=== PATIENT | female | born 1980 | race Caucasian/White ===

== ENCOUNTER 2022-09-25 17:37 | Outpatient (CLI) | payer OTHER, SELFPAY ==
--- NOTE | ~2022-09-25 | MM_ITS ---
EXAMINATION: MM screening edith BI w north HISTORY: Screening mammogram TECHNIQUE: Craniocaudal and mediolateral oblique 3-D tomosynthesis images were obtained and synthetic 2-D images were generated. CAD analysis was submitted and interpreted. COMPARISON: No prior mammogram is available for comparison at this institution. BREAST PARENCHYMAL COMPOSITION: There are scattered areas of fibroglandular density. FINDINGS: Subtle asymmetry is suggested in the right subareolar area. Diagnostic right mammogram is r ecommended, with ultrasound if required. Otherwise there is no evidence of suspicious mass, calcification, or architectural distortion to sug gest malignancy in either breast. IMPRESSION: 1. Subtle mammographic asymmetry in right subareolar area 2. Diagnostic right mammogram is recommended, with ultrasound if required BI-RADS Category 0: Incomplete: Needs additional imaging evaluation. Reviewed, dictated and finalized at location A. ULAR TECH
== END 2022-09-25 17:38 | disposition home or self-care (01) ==
PROVIDERS: PCP Internal Medicine; Visit Provider Nurse Practitioner
DX: Z12.31 Encounter for screening mammogram for malignant neoplasm of breast (principal); N64.89 Other specified disorders of breast
CPT/HCPCS: 77063; 77067

== ENCOUNTER 2022-10-12 13:42 | Outpatient (CLI) | payer OTHER, SELFPAY ==
--- NOTE | ~2022-10-12 | MMUS_ITS ---
EXAMINATION: MM diagnostic edith RT w north, US breast RT complete HISTORY: Subtle mammographic asymmetry in the right subareolar area on 09/21/2022 screening mammogram TECHNIQUE: Additional 3-D tomosynthesis images of the right breast were performed and synthetic 2-D i mages were generated. CAD analysis was submitted and interpreted. High resolution complete right sih st ultrasound examination including all 4 quadrants and subareolar area was performed. COMPARISON: 09/21/2022 bilateral screening mammogram FINDINGS: MAMMOGRAPHIC FINDINGS: Possible approximately 6.5 x 11 mm opacity in the lower outer left breast (ML Tomosynthesis image ). No suspicious reproducible mass or architectural distortion, malignant calcification, skin thickening or retraction is detected. ULTRASOUND: No suspicious mass or shadowing, cyst or other significant sonographic abnormalities detected in the right breast. IMPRESSION: 1. No mammographic evidence of malignancy 2. Routine annual mammographic screening is recommended BI-RADS Category 1: Negative Reviewed, dictated and finalized at location A. OYEE COMMUNICATIONS COORDINATOR IMPRESSION: 1. No mammographic evidence of malignancy 2. Routine annual mammographic screening is recommended BI-RADS Category 1: Negative
== END 2022-10-12 13:43 | disposition home or self-care (01) ==
PROVIDERS: PCP Internal Medicine; Visit Provider Nurse Practitioner
DX: N64.89 Other specified disorders of breast (principal)
CPT/HCPCS: 76641; 77061; 77065; G0279

== ENCOUNTER 2023-12-05 10:50 | Outpatient (CLI) | payer OTHER, SELFPAY ==
[2023-12-05 11:59] LABS: Anion Gap 3 mmol/L (4-12); Blood Urea Nitrogen 15 mg/dL (7-17); Calcium 9.2 mg/dL (8.4-10.2); Carbon Dioxide 26 mmol/L (22-30); Chloride 105 mmol/L (98-107); Estimated Glomerular Filt Rate > 60; Glucose 114 mg/dL (65-110); Potassium 4.1 mmol/L (3.4-5.0); Sodium 134 mmol/L (137-145)
[2023-12-05 22:58] LABS: Hemoglobin A1C 5.7 % (<5.7)
== END 2023-12-05 10:51 | disposition home or self-care (01) ==
LOC: ANHLAB 10:52
PROVIDERS: PCP Internal Medicine; Visit Provider Nurse Practitioner
DX: E11.9 Type 2 diabetes mellitus without complications (principal)
CPT/HCPCS: 36415; 80048; 83036

== ENCOUNTER 2024-03-19 16:14 | Outpatient (CLI) | payer OTHER, SELFPAY ==
--- NOTE | ~2024-03-19 | MM_ITS ---
EXAMINATION: MM screening edith BI w north HISTORY: Screening TECHNIQUE: Craniocaudal and mediolateral oblique 3-D tomosynthesis images were obtained and synthetic 2-D images were generated. CAD analysis was submitted and interpreted. COMPARISON: Comparison to multiple prior studies sequentially, with oldest reviewed study dated 09/25. BREAST PARENCHYMAL COMPOSITION: Not dense: There are scattered areas of fibroglandular density. FINDINGS: There is no evidence of suspicious mass, calcification, or architectural distortion to sugg est malignancy in either breast. There has been no suspicious interval change. IMPRESSION: 1. No mammographic evidence of malignancy. 2. Recommend routine screening mammography in one year. BI-RADS Category 1: Negative Reviewed, dictated and finalized at location B.
== END 2024-03-19 16:15 | disposition home or self-care (01) ==
PROVIDERS: PCP Internal Medicine; Visit Provider Internal Medicine
DX: Z12.31 Encounter for screening mammogram for malignant neoplasm of breast (principal)
CPT/HCPCS: 77063; 77067

== ENCOUNTER 2025-01-22 08:21 | Outpatient (CLI) | payer OTHER, SELFPAY ==
--- OUTSIDE RECORDS SUMMARY | 2025-01-22 08:24 | XMS_ITS | Clinical Summary ---
Author Organization [facility] Address [address] [address] Care Team Providers Care Ammonia Worker Name Role Phone Luis Miguel Nolasco DO Primary Care Provider [phone] Source Comments [facility],non-owned Affiliates and Associated Physician Practices is amultiple site organization consisting of ambulatory clinics and hospital sitesin [place], [place], [place] and [place]. This disclosure is being madepursuant to the Care Everywhere program and may not contain all information available regarding this patient. Last updated 18.[facility] Allergies No known active allergies Medications * Be aware that medications may not be up to date on this document. Alwaysverify current medications with the patient. amitriptyline (ELAVIL) 50 MG tablet Take 50 mg by mouth Active Calcium Carb-Cholecalci ferol 600-800 MG-UNIT Take 1 tablet twice a day by oral route. Active Cholecalciferol (VITAMIN D) 400 UNIT/ML Active DULoxetine (CYMBALTA) 30 MG capsule Take 30 mg by mouth 8 Active lisinopril (PRINIVIL; ZESTRIL) 10 MG tablet 8 Active meloxicam (MOBIC) 15 MG tablet meloxicam 15 mg tablet Active Family History Medical History Relation Name Comments Diabetes - Type 2 Brother Diabetes - Type 2 Father Diabetes - Type 2 Mother Hyperlipidemia Mother Diabetes - Type 2 Sister Relation Name Status Comments Brother Father Mother Sister Social History Tobacco Use Types Packs/Day Years Used Date Smoking Tobacco: Every Day Smokeless Tobacco: Never Alcohol Use Standard Drinks/Week Comments Yes 0 (1 standard drink = 0.6 oz pur e alcohol) occassionally Comments Unknown Sex and Gender Information Value Date Recorded Sex Assigned at Not on file Legal Sex Female 8:55 AM CDT Gender Identity Not on file Sexual Orientation Not on file Last Filed Vital Signs Vital Sign Reading Time Taken Comments Blood Pressure 136/77 05/28/2018 4:03 PM CDT Pulse 68 05/28/2018 4:03 PM CDT Temperature 36.8 C (98.2 F) 05/28/2018 4:03 PM CDT Respiratory Rate - - Oxygen Saturation 100% 05/28/2018 4:03 PM CDT Inhaled Oxygen Concentration - - Weight 83.9 kg (185 lb) 05/28/2018 4:03 PM CDT Height 165.1 cm (5' 5 ) 05/28/2018 4:03 PM CDT Body Mass Index 30.79 05/28/2018 4:03 PM CDT Plan of Treatment Health Maintenance Due Date Last Done Comments LIPID TESTING 1980 MAMMOGRAM 1980 HIV SCREENING 1995 HEPATITIS C SCREENING 10/02/1998 DTAP/TDAP/TD VACCINES (1 - Tdap) 1999 HEPATITIS B VACCINE (1 of 3 - 19+ 3-dose series) 1999 COVID-19 VACCINE (1 - 2023-2 5 season) 2024 DEPRESSION SCREENING 09/02/2024 INFLUENZA VACCINE (Season Ended) 2025 ZOSTER VACCINE (1 of 2) 2030 HIB VACCINE Aged Out No longer eligi ble based on patient's age to complete this topic HPV VACCINE Aged Out No longer eligi ble based on patient's age to complete this topic MENINGOCOCCAL (Group B) VACC INE SHARED DECISION-MAKING Aged Out No longer eligibl e based on patient's age to complete this topic MENINGOCOCCAL GROUPS A/C/Y/W VACCINE Aged Out No longer eligible b ased on patient's age to complete this topic PNEUMOCOCCAL VACCINE Aged Out No long er eligible based on patient's age to complete this topic [place] [address] [place] [address] [facility] Care Teams Ammonia Worker Relationship Specialty Start Date End Date Luis Miguel Nolasco DO PCP - General 01/30/18
--- OUTSIDE RECORDS SUMMARY | 2025-01-22 08:25 | XMS_ITS | Data Portability ---
Author Organization [facility] Address [address] [place] [address] Assessment No assessment recorded. Plan of Treatment Reminders Order Date Submit Date Provider Last Modified By Organization Details Last Modified Time Details Appointments None recorded. Lab urinalysi s, dipstick 2015 Nargis vega In-Office Order, Internal Use Only DO Not Attach Compendium DO Not Attach Compendium, Do Not Delete/merge, [id number] 6 15:27:13 bacterial vaginosis + vaginitis panel, vaginal 2014 015 [facility] [address] [place] [address], [address], [place], [address], 5 20:08:30 HSV (1+2) DNA, qual, PCR, unspecifi ed specimen 2014 015 [facility], [address] [place], [place] [address] Doc, [address], [place], [address], 5 20:08:31 culture, vaginal/r ectal, streptoco ccus group B 2014 015 [facility], [address] [place] [address], [address], [place], [address], 5 20:08:32 pap, IG + HPV, cervical 2014 015 [facility], [address] [place] [address], [address], [place], [address], 5 16:31:47 pap, LB + HPV mRNA E6/E7 + reflex HPV (16+18+45 ) 2013 014 [email or web address] [facility], [address], [address], [place], [address], 5 12:39:38 urinalysi s, dipstick 2013 014 gary In-Office Order, Internal Use Only DO Not Attach Compendium DO Not Attach Compendium, Do Not Delete/merge, [id number] 4 15:40:16 Referral None recorded. Procedures None recorded. Surgeries None recorded. Imaging None recorded. Medication Orders Morena-BE 0.35 mg tablet 2015 016 [email or web address] Not available 6 15:27:12 Vitamin D2 1,250 mcg (50,000 unit) capsule 2015 016 mwasserman Not available 6 15:27:12 Vitamin tablet 2015 016 [email or web address] Not available 6 15:27:12 Celexa 40 mg tablet 2015 016 INTERFACE Not available 6 15:27:16 calcium 600 mg (as carbonate )-vitamin D3 10 mcg (400 unit) tablet 2015 016 INTERFACE Not available 6 15:27:18 Calcium 600 with Vitamin D3 600 mg-10 mcg (400 unit) chewable tablet 2014 015 ATHENA[facility] Not available 5 11:32:46 Celexa 40 mg tablet 2014 015 [email or web address] Not available 5 11:04:23 Patient TargetsNo targets recorded. Patient Instructions Encounter Date Encounter Id Patient Instructions Last Modified By Organization Details Last Modified Time 08/03/2015 [id number] learning about mood disorders [email or web address] Not available 08/03/2015 11:04:23 02/06/2016 [id number] learning about mood disorders [email or web address] Not available 02/07/2016 14:41:08 Reason for Referral None Reported. Results Created Date Observation Date Name Description Value Unit Range Abnormal Flag Note LastModifiedBy Organization Detail LastModifiedTime 02/06/20 16 02/06/2016 urina lysis , dipst ick Leukocytes Negati ve Not Available In-Office Order Internal Use Only DO Not Attach Compendium DO Not Attach Compendium, Do Not Delete/merge, 02/06/2016 13:15:40 02/06/20 16 02/06/2016 urina lysis , dipst ick Nitrite negati ve Not Available In-Office Order Internal Use Only DO Not Attach Compendium DO Not Attach Compendium, Do Not Delete/merge, 02/06/2016 13:15:40 02/06/20 16 02/06/2016 urina lysis , dipst ick Urobilinogen .2 Not Available In-Of fice Order Internal Use Only DO Not Attach Compendium DO Not Attach Compendium, Do Not Delete/merge, 02/06/2016 13:15:40 02/06/20 16 02/06/2016 urina lysis , dipst ick Protein Negati ve Not Available In-Office Order Internal Use Only DO Not Attach Compendium DO Not Attach Compendium, Do Not Delete/merge, 02/06/2016 13:15:40 02/06/20 16 02/06/2016 urina lysis , dipst ick pH 6.0 Not Available In-Office Order Internal Use Only DO Not Attach Compendium DO Not Attach Compendium, Do Not Delete/merge, 02/06/2016 13:15:40 02/06/20 16 02/06/2016 urina lysis , dipst ick Blood Negati ve Not Available In-Office Order Internal Use Only DO Not Attach Compendium DO Not Attach Compendium, Do Not Delete/merge, 02/06/2016 13:15:40 02/06/20 16 02/06/2016 urina lysis , dipst ick Specific [place] 1.025 Not Available In-Off ice Order Internal Use Only DO Not Attach Compendium DO Not Attach Compendium, Do Not Delete/merge, [id number] 02/06/2016 13:15:40 02/06/20 16 02/06/2016 urina lysis , dipst ick Ketone Negati ve Not Available In-Office Order Internal Use Only DO Not Attach Compendium DO Not Attach Compendium, Do Not Delete/merge, [id number] 02/06/2016 13:15:40 02/06/20 16 02/06/2016 urina lysis , dipst ick Bilirubin Negati ve Not Available In-Office Order Internal Use Only DO Not Attach Compendium DO Not Attach Compendium, Do Not Delete/merge, [id number] 02/06/2016 13:15:40 02/06/20 16 02/06/2016 urina lysis , dipst ick Glucose Negati ve Not Available In-Office Order Internal Use Only DO Not Attach Compendium DO Not Attach Compendium, Do Not Delete/merge, [id number] 02/06/2016 13:15:40 08/03/20 14 08/03/2014 urina lysis , dipst ick Leukocytes Negati ve Not Available In-Office Order Internal Use Only DO Not Attach Compendium DO Not Attach Compendium, Do Not Delete/merge, [id number] 08/03/2014 12:17:22 08/03/20 14 08/03/2014 urina lysis , dipst ick Nitrite negati ve Not Available In-Office Order Internal Use Only DO Not Attach Compendium DO Not Attach Compendium, Do Not Delete/merge, [id number] 08/03/2014 12:17:22 08/03/20 14 08/03/2014 urina lysis , dipst ick Protein Negati ve Not Available In-Office Order Internal Use Only DO Not Attach Compendium DO Not Attach Compendium, Do Not Delete/merge, [id number] 08/03/2014 12:17:22 08/03/20 14 08/03/2014 urina lysis , dipst ick pH 7.0 Not Available In-Office Order Internal Use Only DO Not Attach Compendium DO Not Attach Compendium, Do Not Delete/merge, [id number] 08/03/2014 12:17:22 08/03/20 14 08/03/2014 urina lysis , dipst ick Blood Negati ve Not Available In-Office Order Internal Use Only DO Not Attach Compendium DO Not Attach Compendium, Do Not Delete/merge, [id number] 08/03/2014 12:17:22 08/03/20 14 08/03/2014 urina lysis , dipst ick Specific [place] 1.020 Not Available In-Off ice Order Internal Use Only DO Not Attach Compendium DO Not Attach Compendium, Do Not Delete/merge, [id number] 08/03/2014 12:17:22 08/03/20 14 08/03/2014 urina lysis , dipst ick Ketone Negati ve Not Available In-Office Order Internal Use Only DO Not Attach Compendium DO Not Attach Compendium, Do Not Delete/merge, [id number] 08/03/2014 12:17:22 08/03/20 14 08/03/2014 urina lysis , dipst ick Bilirubin Negati ve Not Available In-Office Order Internal Use Only DO Not Attach Compendium DO Not Attach Compendium, Do Not Delete/merge, [id number] 08/03/2014 12:17:22 08/03/20 14 08/03/2014 urina lysis , dipst ick Glucose Negati ve Not Available In-Office Order Internal Use Only DO Not Attach Compendium DO Not Attach Compendium, Do Not Delete/merge, [id number] 08/03/2014 12:17:22 08/03/20 14 08/03/2014 urina lysis , dipst ick Appearance Slight ly Cloudy Not Available In-Office Order Internal Use Only DO Not Attach Compendium DO Not Attach Compendium, Do Not Delete/merge, [id number] 08/03/2014 12:17:22 08/03/20 14 08/03/2014 urina lysis , dipst ick Color Yellow Not Available In-Office Order Internal Use Only DO Not Attach Compendium DO Not Attach Compendium, Do Not Delete/merge, [id number] 08/03/2014 12:17:22 08/03/20 15 08/05/2015 pap, IG + HPV, cervi misty diagnosis: COMMEN T NEGAT SUSAN FOR INTRA EPITH ELIAL LESIO N AND CHERIE NELSON . Not Available [facility] ([facility]) [address], [place], [address], 08/05/2015 16:31:47 08/03/20 15 08/05/2015 pap, IG + HPV, cervi misty specimen adequacy: JACQUE Nicole SATIS FACTO RY FOR EVALU ATION . ENDOC ERVIC AL AND/O R SQUAM OUS METAP LASTI C CELLS (ENDO CERVI MISTY COMPO NENT) ARE PRESE NT. Not Available [facility] ([facility]) [address] [place], [address], 08/05/2015 16:31:47 08/03/20 15 08/05/2015 pap, IG + HPV, cervi misty clinician provided ICD10: JACQUE Nicole Z01.4 19 Not Available [facility] ([facility]) [address] [place], [address], 08/05/2015 16:31:47 08/03/20 15 08/05/2015 pap, IG + HPV, cervi misty performed by: HILDA CHAVIRA (ASCP ) Not Available [facility] ([facility]) [address] [place], [address], 08/05/2015 16:31:47 08/03/20 15 08/05/2015 pap, IG + HPV, cervi misty . . Not Available [facility] ([facility]) [address] [place], [address], 08/05/2015 16:31:47 08/03/20 15 08/05/2015 pap, IG + HPV, cervi misty note: JACQUE Nicole THE PAP SMEAR IS A SCREE MOHSEN TEST DESIG SHANKAR TO AID IN THE DETEC TION OF JOHN LIGNA NT AND MALIG NANT CONDI TIONS OF THE UTERI NE CERVI X. IT IS NOT A DIAGN OSTIC PROCE DURE AND SHOUL D NOT BE USED THE SOLE MEANS OF DETEC TING CERVI MISTY CANCE R. BOTH FALSE -POSI TIVE AND FALSE -NEGA TIVE REPOR TS DO OCCUR . Not Available [facility] ([facility]) [address] [place], [address], 08/05/2015 16:31:47 08/03/20 15 08/05/2015 pap, IG + HPV, cervi misty test methodology: COMMEN T THIS LIQUI D BASED THINP REP(R ) PAP TEST WAS BÁRBARA CHAPARRO WITH THE USE OF AN IMAGE GUIDE Julio César Beaver Not Available [facility] ([facility]) [address] [place], [address], 08/05/2015 16:31:47 08/03/20 15 08/05/2015 pap, IG + HPV, cervi misty HPV aptima NEGATI VE negati ve THIS TEST DETEC TS FOURT EEN HIGH- RISK HPV TYPES (16/1 8/31/ 33/35 /39/4 5/ 51/52 /56/5 8/59/ 66/68 ) WITHO CYNDY MACHADO ATMADHU . Not Available [facility] ([facility]) [address], [place], [address], 08/05/2015 16:31:47 08/03/20 15 08/05/2015 bacte rial vagin osis + vagin itis panel , vagin al trich vag by MELONIE NEGATI VE negati ve Not Available [facility] ([facility]) [address] [place], [address], 08/07/2015 20:08:30 08/03/20 15 08/05/2015 bacte rial vagin osis + vagin itis panel , vagin al chlamydia trachomatis, MELONIE NEGATI VE negati ve Not Available [facility] ([facility]) [address] [place], [address], 08/07/2015 20:08:30 08/03/20 15 08/05/2015 bacte rial vagin osis + vagin itis panel , vagin al neisseria gonorrhoeae, MELONIE NEGATI VE negati ve Not Available [facility] ([facility]) [address] [place], [address], 08/07/2015 20:08:30 08/03/20 15 08/07/2015 bacte rial vagin osis + vagin itis panel , vagin al atopobium vaginae LOW - 0 score Not Available [facility] ([facility]) [address] [place], [address], 08/07/2015 20:08:30 08/03/20 15 08/07/2015 bacte rial vagin osis + vagin itis panel , vagin al bvab 2 LOW - 0 score Not Available [facility] ([facility]) [address], [place], [address], 08/07/2015 20:08:30 08/03/20 15 08/07/2015 bacte rial vagin osis + vagin itis panel , vagin al megasphaera 1 LOW - 0 score CALCU LATE TOTAL SCORE BY CLINT Montanez THE 3 INDIV IDUAL BACTE RIAL VAGIN OSIS (BV) MARKE R SCORE S TOGET HER. TOTAL SCORE IS INTER PRETE D FOLLO WS: TOTAL SCORE 0-1: INDIC ATES THE ABSEN CE OF BV. TOTAL SCORE 2: INDET ERMIN ATE FOR BV. ADDIT IONAL CLINI MISTY DATA SHOUL D BE EVALU ATED TO ESTAB BEL A DIAGN OSIS. TOTAL SCORE 3-6: INDIC ATES THE PRESE NCE OF BV. THIS TEST WAS DEVEL OPED AND ITS PERFO RMANC E NASIMA CTERI STICS DETER MINED BY [facility]. IT HAS NOT BEEN CLEAR ED OR APPRO PARISH BY THE FOOD AND DRUG ADMIN ISTRA TION. THE FDA HAS DETER MINED THAT SUCH CLEAR ANCE OR APPRO THAD IS NOT NECES JUDD. Not Available [facility] ([facility]) [address], [place], [address], 08/07/2015 20:08:30 08/03/20 15 08/07/2015 bacte rial vagin osis + vagin itis panel , vagin al conrad albicans, MELONIE NEGATI VE negati ve Not Available [facility] ([facility]) [address], [place], [address], 08/07/2015 20:08:30 08/03/20 15 08/07/2015 bacte rial vagin osis + vagin itis panel , vagin al conrad glabrata, MELONIE NEGATI VE negati ve THIS TEST WAS DEVEL OPED AND ITS PERFO RMANC E NASIMA CTERI STICS DETER MINED BY [facility]. IT HAS NOT BEEN CLEAR ED OR APPRO PARISH BY THE FOOD AND DRUG ADMIN ISTRA TION. THE FDA HAS DETER MINED THAT SUCH CLEAR ANCE OR APPRO THAD IS NOT NECES JUDD. Not Available [facility] ([facility]) [address] [place], [address], 08/07/2015 20:08:30 08/03/20 15 08/05/2015 HSV (1+2) DNA, qual, PCR, unspe cifie d speci men hsv 1 MELONIE NEGATI VE negati ve Not Available [facility] ([facility]) [address] [place], [address], 08/07/2015 20:08:31 08/03/20 15 08/05/2015 HSV (1+2) DNA, qual, PCR, unspe cifie d speci men hsv 2 MELONIE NEGATI VE negati ve Not Available [facility] ([facility]) [address] [place], [address], 08/07/2015 20:08:31 08/03/20 15 08/05/2015 cultu re, vagin al/re ctal, strep tococ cus group B strep gp B MELONIE NEGATI VE negati ve PENIC ILLIN G, AMPIC ILLIN , OR CEFAZ ARLINE ARE INDIC ATED FOR INTRA PARTU M PROPH YLAXI S OF PERIN ATAL GROUP B STREP (GBS) COLON IZATI ON. REFLE X SUSCE PTIBI LITY TESTI NG SHOUL D BE PERFO RMED PRIOR TO USE OF CLIND AMYCI N ONLY ON GBS ISOLA VIRGIE FROM PENIC ILLIN -TYRONE RGIC WOMEN WHO ARE CONSI DERED A HIGH RISK FOR ANAPH YLAXI S. TREAT MENT WITH VANCO MYCIN WITHO UT ADDIT IONAL TESTI NG IS WARRA SAURAV IF RESIS TANCE TO SHAZIAJulio César LEONARDO Angela IS NOTED . (CDC GUIDE LINES , MMWR, 2009) Not Available [facility] ([facility]) [address], [place], [address], 08/07/2015 20:08:31 Result Notes None recorded. 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 Procedures Surgical History Date Name Laterality Status Provider Name and Address Organization Details Recorded Time 06/02/20 14 Date of Last Pap Smear completed Ivan Maddox [facility] 08/03/2015 10:36:01 01/25/20 11 Endometrial Ablation completed Ivan Maddox [facility] 08/03/2015 10:36:01 02/19/20 10 Tubal Ligation completed Ivan Maddox [facility] 08/03/2015 10:36:01 12/23/19 10 Caesarean Section completed Ivan BOLIVAR [facility] 08/03/2015 10:36:01 09/30/18 99 Caesarean Section completed Ivan BOL[facility]AR [facility] 08/03/2015 10:36:01 Imaging Results None recorded. Procedure Notes None recorded. Medical Equipment None Reported. Allergies No known drug allergies Medications Name Sig Start Date Stop Date Status Note LastModified by Organization Details LastModified Time cyclobenzaprine 10 mg tablet active Not Available Not Available Not Available metformin 500 mg tablet active Not Available Not Available No t Available gabapentin 600 mg tablet active Not Available Not Available No t Available citalopram 40 mg tablet Take 1 tablet every day by oral route. active Not Available Not Available No t Available hydrocodone 5 mg-acetaminophe n 325 mg tablet active Not Available Not Availa ble Not Available meloxicam 15 mg tablet active Not Available Not Available Not Available prednisone 5 mg tablet active Not Available Not Available Not Available ciprofloxacin 250 mg tablet active Not Available Not Availabl e Not Available ketorolac 10 mg tablet active Not Available Not Available Not Available Vitamin tablet Take 1 tablet(s ) every day by oral route as directed . 2016 active Not Available Not Available Not Avai lable meloxicam 7.5 mg tablet active Not Available Not Available No t Available simvastatin 20 mg tablet active Not Available Not Available No t Available metformin 1,000 mg tablet active Not Available Not Available No t Available gabapentin 300 mg capsule active Not Available Not Available N ot Available diclofenac sodium 75 mg tablet,delayed release active Not Available Not Available Not Available Vitamin D2 1,250 mcg (50,000 unit) capsule Take 1 capsule every week by oral route. active Not Available Not Available No t Available norethindrone (contraceptive) 0.35 mg tablet Take 1 tablet every day by oral route. active Not Available Not Available No t Available calcium 600 mg (as carbonate)-ha min D3 10 mcg (400 unit) tablet Take 1 tablet twice a day by oral route. active Not Available Not Available No t Available Calcium 600 with Vitamin D3 600 mg-10 mcg (400 unit) chewable tablet Take 1 tablet twice a day by oral route. 2014 active Not Available Not Available Not Avai lable Truetest Test Strips active Not Available Not Available Not Available Trueresult Blood Glucose System kit active Not Available Not Available N ot Available TRUEplus Lancets 28 gauge active Not Available Not Available Not Available 19 (with docusate) 29 mg iron-1 mg-25 mg tablet active Not Available Not Availa ble Not Available Vitals Date Recorded Body height Body mass index (BMI) Body weight Systolic blood pressure Diastolic blood pressure Provider Name and Address Organization Details Last Updated DateTime 08/03/2015 165.1 cm 36.3 kg/m2 41330.13 666 g 118 mm[Hg] 78 mm[Hg] Ivan Tan [facility] 5 10:36:01 Date Recorded Body weight Body height Body mass index (BMI) Systolic blood pressure Diastolic blood pressure Provider Name and Address Organization Details Last Updated DateTime 02/06/2016 218547.6 9088 g 165.1 cm 37.3 kg/m2 136 mm[Hg] 92 mm[Hg] Chiquita Rios MA [facility] 6 12:56:24 Date Recorded Body height Body mass index (BMI) Body weight Systolic blood pressure Diastolic blood pressure Provider Name and Address Organization Details Last Updated DateTime 08/03/2014 165.1 cm 38.4 kg/m2 277721.8 3747 g 116 mm[Hg] 70 mm[Hg] Dawna Rey [place] [facility] 4 12:17:22 Social History Question Answer Notes LastModified by Organizat ion Details LastModified Time Tobacco Smoking Status Former Smoker quit 05/08/2014 Dawna Rey [place] null, [place] - [facility] 08/03/2014 11:59:54 Do You Have An Advance Directive? No [email or web address] Information not available 08/03/2014 Is Blood Transfusion Acceptable In An Emergency? Yes [email or web address] Information not available 08/03/2014 What Is Your Level Of Caffeine Consumption? None Information not available 08/03/2015 How Much Tobacco Do You Chew? None [email or web address] Information not available 08/03/2014 What Type Of Diet Are You Following? REGULAR [email or web address] Information not available 08/03/2014 Which Illicit Or Recreational Drugs Have You Used? None [email or web address] Information not available 08/03/2014 Education 2 Year College [email or web address] Information not available 08/03/2014 Live Alone Or With Others? With Others [email or web address] Information not available 08/03/2014 How Many Children Do You Have? 2 [email or web address] Information not available 08/03/2014 Performs Monthly Self-breast Exam? Yes [email or web address] Information no t available 08/03/2014 Do You Use Protection During Sex? Always [email or web address] Information not available 08/03/2014 What Is Your Relationship Status? [email or web address] Information not available 08/03/2014 Seat Belts Used Routinely Yes [email or web address] Information not available 08/03/2014 Are You Sexually Active? Yes Information not available 08/03/2015 At What Age Did You Start Smoking Tobacco? 15 Quit 2013 Information not available 08/03/2015 How Much Tobacco Do You Smoke? No [email or web address] Information not available 08/03/2014 General Stress Level Medium Information not available 08/03/2015 Do You Use Sunscreen Routinely? Yes [email or web address] Information not available 08/03/2014 How Many Years Have You Smoked Tobacco? 16 [email or web address] Information not available 08/03/2014 Sex: Unknown Functional Status Question Answer Note LastModified by Organizat ion Details LastModified Time What is your level of alcohol consumption? None [email or web address] Information not available 08/03/2014 Are you currently employed? No [email or web address] Information not available 08/03/2014 What is your exercise level? Occasional Information not available 08/03/2015 Mental Status None recorded. Family History Relationship Description Onset Age of this Age Resolved Age Notes LastModified by Organization Details LastModified Time Mother Diabetes mellitus [email or web address] Not available 02/05 15:23:39 Father Diabetes mellitus [email or web address] Not available 02/05 15:23:39 Maternal Grandmother Diabetes mellitus [email or web address] Not available 02/05 15:23:39 Maternal Grandfather Diabetes mellitus [email or web address] Not available 02/05 15:23:39 Paternal Grandmother Diabetes mellitus [email or web address] Not available 02/05 15:23:39 Paternal Grandfather Diabetes mellitus [email or web address] Not available 02/05 15:23:39 Medical History Condition Response Coronary Artery Disease N Kidney Cyst N Blood Diseases N Hyperthyroidism N Blood disorders N Blood Transfusion N MRSA N Emphysema N Depression N COPD N Blood Clots N Pneumonia N Premature N Peripheral Arterial Disease N Edema N TIA N Headaches/Migraines N Anxiety Disorder N Obesity N Polyps N Infertility N Acid Reflux (GERD) N Hematuria N Stroke N Neck Injury N Polio N Hospital Admission other than N Neurologic Disorder N Other Sleep Disorders N Rheumatoid Arthritis N Fibromyalgia N Abdominal Aortic Aneurysm Repair N Kidney Disease N Heart Conditions N Heart Disease/Heart Problems N Hospitalizations N Brain Tumors N Acne N Skin Problems N Eating Disorder N Meningitis N Constipation N Tuberculosis N Cerebral Palsy N Myocardial Infarction N Asthma N Substance Abuse N Peripheral Vascular Disease N Vertigo N Sleep Disorder N Cirrhosis N Pulmonary Embolism N Chicken Pox N Hematologic Disease N Flomax Use Past or Present N Anxiety/Depression N Thyroid Disease N Colon Cancer N Lung Disease N Glaucoma N Developmental or Behavioral Disorders N Bipolar N Pacemaker N Diverticulitis/Diverticulosis N Orthopedic Problems N Anesthesia Complications N Orthotics N Head Injury/Concussion N Congenital Anomalies N Prakash Bite N Chronic Kidney Disease N Endometriosis N Liver Disease N Schizophrenia N Dialysis N Speech Delay N Chronic Obstructive Pulmonary Disease N Parkinson's Disease N Thyroid Problems N GI Problems N Developmental Delay N Anemia N Multiple Sclerosis N Immune System Disorder N Colon Polyps N Heart Attack (NC) N Diabetes Y Cardiomyopathy N Blood Transfusions N Heart Problems/Murmur N Eye Trauma N Congestive Heart Failure (CHF) N Valvular Heart Disease N Hyperlipidemia N Double Vision N Abuse/Domestic Violence N Hepatitis B N Lupus N Epilepsy/Seizures N Reflux/GERD N Aneurysm N Heart Disease N Bronchitis N Pre-Eclampsia N Hypertension N Heart Failure N Other N Gout N High Blood Pressure N Atrial Fibrillation N Kidney Stones N Head Trauma/Injury N Congenital Heart Disease N Spine Problems N Gastrointestinal Disease N Lung Mass N Sinusitis N Obstructive Sleep Apnea N Muscle, Joint, or Bone Problems N Autoimmune disease N Vision or Eye Problems N Arthritis N Blood Clot N Cancer N Seasonal allergies N Leg or Foot Ulcers N Raynaud's Disease N Aortic Aneurysm N Arrhythmia N Headaches N Heart Problems N Ambloypia N Ear or Hearing Problems N Hyperparathyroidism N Migraines N Artificial Joints N Kidney or Bladder Problems N NSAID Use N Encephalitis N PTSD N Ulcers N Prostate Hypertrophy N Bleeding Disorder N AIDS/HIV N Urinary Tract Infection N Back Problems N Allergies N Atrial Flutter N GERD/Reflux N Hepatitis N Autism Spectrum Disorder (ASD) N Breast Cancer N Hernia N Hypothyroidism N Breast Problem N Genitourinary Disease N Deep Vein Thrombosis N Varicose Veins N Cystic Fibrosis N Hearing Loss N Developmental Problems N Carotid Disease N Vitamin D Deficiency N ADHD N Bladder or Kidney Problems N High Cholesterol N [place] N Valvular Abnormalities N Psychiatric/Mental Health Condition N Organ Transplant N Foot Deformity N Allergies/Hayfever N Dyslipidemia N Hyponatremia N Diabetic Eye Disease N Osteoporosis/Osteopenia N Back Pain N Proteinuria N Mental Illness N Neurological Problems N Ovarian Cancer N Bedwetting N Seizures/Epilepsy N Kidney Failure N Ocular trauma N Diverticulitis N Dementia N Sleep Apnea N Mental Problems N Warfarin Management N Osteoporosis N Gynecological History Statement/Question Response Abnormal Pap N On BCP's at Conception? N STIs/STDs N HPV Vaccine N Age at Menarche 13 Current Control Method Sterilizati on Age at First Child 17 If Post Menopausal, Age at Menopause 30 Sexually Active? Y Menses Monthly N Date of Last Pap Smear 06/02/2014 Sexual Problems? N LMP Approximate Obstetrics History GPAL:G 4 P 2 0 1 2 Type Value Multiple Births 1 Full Term 2 Induced 0 Spontaneous 1 Premature 0 Living 2 Ectopics 0 Total 4 Past Encounters Encounter ID Performer Location Encounter Start Date Encounter Closed Date Diagnosis/Indication Diagnosis SNOMED-CT Code Diagnosis ICD10 Code Diagnosis Note [id number] MD Kaylee Horowitz (CHARGE MASTER SPECIALIST) [address] [place] [id number] 08/03/2014 11:03:05 08/03/2014 13:35:41 Gynecologic examination [id number] MD Kaylee Horowitz (CHARGE MASTER SPECIALIST) [address] [place] [address] 08/03/2015 09:49:43 08/03/2015 11:07:24 Gynecologic examination [id number] Z01.419 Depressive disorder 3548 9007 F32.9 [id number] MD Kaylee Horowitz (CHARGE MASTER SPECIALIST) [address] [place] [address] 02/06/2016 11:28:02 02/06/2016 15:28:10 Premature ovarian failure [id number] E28.39 Depressive disorder 3548 9007 F32.9 Health Concerns Section Related Observation LastModified by Organization Detai ls LastModified Time None Recorded Concern Status LastModified by Organization Details LastModified Time None Recorded Advance Directives Directive N: Payers Encounter Date Sequence Insurance Name Policy Number Policy Raphael Covered Member ID Raphael Member ID Guarantor Name 08/03/2014 1 [facility] (MEDICAID HMO) [id number] [facility] [id number] 08/03/2015 1 [facility] (MEDICAID HMO) [id number] [facility] [id number] 02/06/2016 1 [facility] (MEDICAID HMO) [id number] [facility] [id number] Notes Date Note Type Note Provider Name and Address Organization Details Recorded Time 08/03/2015 text/html Annual GYNReport ed bypatient.History: no gynecologic complaints; no change in interval history Urinary symptoms:No hematuria; No incontinence Vulva:No genital lesion Vagina:Normal vaginal discharge Breast:No breast pain; No breast lump; No nipple discharge Current Contraception:Tuba l ligation Sexual complaints:No sexual complaints; No pain during intercourse; Normal libido Menopausal Symptoms:No menopausal symptoms; Normal vaginal lubrication Psychological symptoms:Depressio n;Anxiety Preventive measures:Encourage self breast examination; Encourage regular exercise; Encourage no tobacco use; Encourage regular mammograms starting age 40; Followed with Q3 year pap smear and high risk HPV typing [facility] 08/03/2015 11:08:50 02/06/2016 text/html Annual Perpetual Inventory Clerk Post-MenopausalRep orted bypatient.Menopaus al Symptoms:normal vaginal lubrication;hot flashes Vaginal Bleeding:history of menopause having occurred; no history of post menopausal bleeding Urinary Symptoms:no hematuria; no incontinence; no nocturia; no urinary frequency Vulva:no genital lesion; no vulvar atrophy Vagina:normal vaginal discharge; no vaginal atrophy Breast:no breast lump; no nipple discharge; no breast pain Sexual Complaints:no sexual complaints;decreas ed libido Psychological Symptoms:no anxiety;depression Preventive Measures:encourage regular mammograms starting age 40; encourage self breast examination; encourage regular exercise; encourage no tobacco use; needs to schedule mammogram Ivan Maddox [facility] 02/06/2016 15:27:29 OBGyn Episode Ob Episode Information Episode Created Date Number of Fetuses Patient Bloodtype Patient rh Status Prepregnancy Weight lbs Domestic Partner Domestic Partner Phone Father Name Regional Sales Associate Status 08/03/20 14 1 CLOSED Fetus Data First Name Last Name Admitted to NICU Weight (g) Sex Living Outcome Pediatric Complications Fetus ID Race Codes Race Delivery Type 2580.93 848 F Full Term 1863 Richard Calculation Initial Richard Date Initial Exam Date Initial Exam Provider Initial Ultrasound Date Last Menstrual Period Date Ultra Sound Weeks Gestation 0 Eighteen To Twenty Week Richard Update Ultra Sound Date Fundal Height At Umbil Quickening Date Ultra Sound Latest Weeks Gestation Final Richard Confirmed By Final Richard Confirmed Date Final Richard Date Ultra Sound Latest Days Gestation 0 0 Menstrual History Last Menstrual Date Menses Monthly On Bcp Conception Prior Menses Frequency Hcg Plus Date Menarche Onset Age Delivery Information Delivery Date Delivery Type Labor Anesthesia Weeks Gestation Incision Type Labor Labor Length Hrs Delivered By Post Complications Tubal Sterilization Discharge Date Comments 0 Regional-Sp inal 39 false 0 Discharge Information Feeding Method Contraceptive Method Maternal HG B and HCT Levels Ob Episode Information Episode Created Date Number of Fetuses Patient Bloodtype Patient rh Status Prepregnancy Weight lbs Domestic Partner Domestic Partner Phone Father Name Regional Sales Associate Status 08/03/20 14 1 CLOSED Fetus Data First Name Last Name Admitted to NICU Weight (g) Sex Living Outcome Pediatric Complications Fetus ID Race Codes Race Delivery Type 2893.91 696 F Full Term 1864 Richard Calculation Initial Richard Date Initial Exam Date Initial Exam Provider Initial Ultrasound Date Last Menstrual Period Date Ultra Sound Weeks Gestation 0 Eighteen To Twenty Week Richard Update Ultra Sound Date Fundal Height At Umbil Quickening Date Ultra Sound Latest Weeks Gestation Final Richard Confirmed By Final Richard Confirmed Date Final Richard Date Ultra Sound Latest Days Gestation 0 0 Menstrual History Last Menstrual Date Menses Monthly On Bcp Conception Prior Menses Frequency Hcg Plus Date Menarche Onset Age Delivery Information Delivery Date Delivery Type Labor Anesthesia Weeks Gestation Incision Type Labor Labor Length Hrs Delivered By Post Complications Tubal Sterilization Discharge Date Comments 8 Regional-Sp inal 38 false 0 Discharge Information Feeding Method Contraceptive Method Maternal HG B and HCT Levels Ob Episode Information Episode Created Date Number of Fetuses Patient Bloodtype Patient rh Status Prepregnancy Weight lbs Domestic Partner Domestic Partner Phone Father Name Regional Sales Associate Status 08/03/20 14 2 CLOSED Fetus Data First Name Last Name Admitted to NICU Weight (g) Sex Living Outcome Pediatric Complications Fetus ID Race Codes Race Delivery Type , Induced [birth year] Richard Calculation Initial Richard Date Initial Exam Date Initial Exam Provider Initial Ultrasound Date Last Menstrual Period Date Ultra Sound Weeks Gestation 0 Eighteen To Twenty Week Richard Update Ultra Sound Date Fundal Height At Umbil Quickening Date Ultra Sound Latest Weeks Gestation Final Richard Confirmed By Final Richard Confirmed Date Final Richard Date Ultra Sound Latest Days Gestation 0 0 Menstrual History Last Menstrual Date Menses Monthly On Bcp Conception Prior Menses Frequency Hcg Plus Date Menarche Onset Age Delivery Information Delivery Date Delivery Type Labor Anesthesia Weeks Gestation Incision Type Labor Labor Length Hrs Delivered By Post Complications Tubal Sterilization Discharge Date Comments 5 General 16 0 Discharge Information Feeding Method Contraceptive Method Maternal HG B and HCT Levels
--- OUTSIDE RECORDS SUMMARY | 2025-01-22 08:25 | XMS_ITS | Clinical Summary ---
Author Organization [facility] Address [address] [place] [address] Phone Care Team Providers Care Nurse School Name Role Phone Luis Miguel Nolasco DO Primary Care Provider Allergies No known active allergies Medications Calcium Carbonate (CALCIUM 600 PO) Take by mouth daily. Active Cholecalciferol (VITAMIN D) 400 UNIT/ML Liquid Take by mouth once a week. Active DULoxetine (CYMBALTA) [address] Particles Take 30 mg by mouth 2 times daily. 8 Active lisinopril (PRINIVIL, ZESTRIL) 10 MG Tablet 8 Active Meloxicam 15 MG Tablet meloxicam 15 mg tablet Active amitriptyline (ELAVIL) 50 MG Tablet Take 50 mg by mouth nightly. Active LYRICA 100 MG Capsule Take 1 cap by mouth nightly for 14 days, then increase to 1 cap by mouth twice daily. 60 Cap 1 8 Active Active Problems Problem Noted Date Diagnosed Date Sacroiliac joint dysfunction of left side 2017 Fibromyalgia 03/20/2018 Chronic midline low back pain with left-sided sc iatica 03/20/2018 Cervicalgia 03/20/2018 Movement disorder 03/20/2018 Family History Medical History Relation Name Comments Diabetes Father Rheumatoid Arthritis Maternal Grandfather Diabetes Mother Cancer Paternal Grandfather leukemi a Cancer Paternal Grandmother leukemi a Relation Name Status Comments Father Maternal Grandfather Mother Paternal Grandfather Paternal Grandmother Social History Tobacco Use Types Packs/Day Years Used Date Smoking Tobacco: Every Day Cigarettes Smokeless Tobacco: Never Alcohol Use Standard Drinks/Week Comments No 0 (1 standard drink = 0.6 oz pur e alcohol) Sexually Active Control Partners Comments Yes Comments Unknown Sex and Gender Information Value Date Recorded Sex Assigned at Not on file Legal Sex Female 2:21 PM CDT Gender Identity Not on file Sexual Orientation Not on file Last Filed Vital Signs Vital Sign Reading Time Taken Comments Blood Pressure 169/96 05/21/2018 3:21 PM CDT Pulse 82 05/21/2018 3:21 PM CDT Temperature 36.2 C (97.1 F) 05/21/2018 3:21 PM CDT Respiratory Rate 16 05/14/2018 1:43 PM CDT Oxygen Saturation 96% 05/21/2018 3:21 PM CDT Inhaled Oxygen Concentration - - Weight 83.8 kg (184 lb 12.8 oz) 05/14/2018 1:43 PM CDT Height 162.6 cm (5' 4 ) 05/14/2018 1:43 PM CDT Body Mass Index 31.72 05/14/2018 1:43 PM CDT Plan of Treatment Health Maintenance Due Date Last Done Comments Hepatitis C Virus (HCV) Screening 1980 TdaP Immunization 1980 Hepatitis B Immunization (1 of 3 - 19+ 3-dose series) 1999 Influenza Immunization (#1) 2024 SARS-COV-2 Immunization (2023-25 season) 2024 Respiratory Syncytial Virus (RSV) Immunization (Adult) (1 - 1-dose 75+ series) 2055 Meningococcal Immunization (ACWY) Aged Out No longer eligible based on patient's age to complete this topic Pneumococcal Immunization Combined Aged Out No longer eligible based on patient's age to complete this topic Rotavirus Immunization Aged Out No lo nger eligible based on patient's age to complete this topic Insurance MEDICAID [place] Care Teams Nurse School Relationship Specialty Start Date End Date Luis Miguel Nolasco DO [facility] [place] [address] PCP - General Internal Medicine 02/17/18
[2025-01-22 08:42] LABS: Basophils Absolute Auto 0.1 K/mm3 (0.0-0.1); Eosinophils Absolute Auto 0.7 K/mm3 (0-0.3); Eosinophils Percent Auto 8.3 % (0-4.4); Hematocrit 45.7 % (37.0-47.0); Hemoglobin 15.7 g/dL (12.0-15.0); Immature Granulocyte Absolute 0.02 K/mm3 (0.00-0.031); Immature Granulocyte Percent A 0.2 % (0-0.5); Lymphocytes Absolute Auto 2.24 K/mm3 (0.9-3.2); Lymphocytes Percent Auto 27.9 % (18.3-44.2); Mean Corpuscular HGB Conc 34.4 g/dl (32-36); Mean Corpuscular Hemoglobin 30.7 pg (26-34); Mean Corpuscular Volume 89.4 fl (80-100); Mean Platelet Volume 9.3 fl (7.4-10.4); Monocytes Absolute Auto 0.5 K/mm3 (0.1-0.6); Monocytes Percent Auto 5.7 % (2.6-8.5); Neutrophils Absolute Auto 4.6 K/mm3 (1.3-6.7); Neutrophils Percent Auto 56.9 % (45.5-73.1); Platelet Count Result 366 k/mm3 (150-375); Red Blood Count 5.11 M/mm3 (4.2-5.4); Red Cell Distribution Width 12.5 % (11.5-14.5)
[2025-01-22 09:26] LABS: Alanine Aminotransferase 17 U/L (6-35); Albumin Level 3.9 g/dL (3.5-5.1); Alkaline Phosphatase 74 U/L (38-126); Anion Gap 6 mmol/L (4-12); Aspartate Amino Transferase 21 U/L (14-36); Bilirubin,Total 0.3 mg/dL (0.2-1.3); Blood Urea Nitrogen 9 mg/dL (7-17); Calcium 8.5 mg/dL (8.4-10.2); Carbon Dioxide 27 mmol/L (22-30); Chloride 105 mmol/L (98-107); Cholesterol 161 mg/dL (0-200); Estimated Glomerular Filt Rate > 60; Glucose 136 mg/dL (65-110); HDL Direct 47 mg/dL; Sodium 138 mmol/L (137-145); Triglycerides 64 mg/dL (<150)
[2025-01-22 09:37] LABS: LDL Cholesterol Direct 93 mg/dL
== END 2025-01-22 08:22 | disposition home or self-care (01) ==
LOC: ANHLAB 08:23
PROVIDERS: PCP Internal Medicine; Visit Provider Clinical Nurse Specialist
DX: E11.9 Type 2 diabetes mellitus without complications (principal); E55.9 Vitamin D deficiency, unspecified
CPT/HCPCS: 36415; 80053; 80061; 82306; 83036; 85025